=== PATIENT | male | born 1965 | race Asian ===

== ENCOUNTER 2016-08-03 18:27 | Emergency (ER) | payer OTHER ==
[~2016-08-03] VITALS: Ht 180.3 cm; Wt 83.4 kg
[2016-08-03] MEDS ORDERED: ACETAMINOPHEN 500 MG TABLET ONE (18:58)
[2016-08-03] MEDS ORDERED: ACETAMINOPHEN 500 MG TABLET PO ONE (19:00)
[2016-08-03] MEDS ORDERED: SODIUM CHLORIDE 0.9% 1,000ML IVBOLUS ONE (19:00)
[2016-08-03] MEDS ORDERED: SODIUM CHLORIDE FLUSH 10ML SYR IVF ONE (19:00)
[2016-08-03 19:29] LABS: ASPARTATE AMINO TRANSFERASE 30 U/L (15-37); BLOOD UREA NITROGEN 11 mg/dL (7-18)
[2016-08-03] MEDS ORDERED: ACETAMINOPHEN 325 MG TABLET ONE (19:29)
[2016-08-03 19:49] VITALS: BP 139/84
[2016-08-03 19:53] LABS: RAPID INFLUENZA A POSITIVE (Negative); RAPID INFLUENZA B Negative (Negative)
== END 2016-08-03 20:29 | disposition home or self-care (01) ==
LOC: ED 20:15
DX: B34.9 Viral infection, unspecified (principal); I25.2 Old myocardial infarction
CPT/HCPCS: 36415; 71010; 80053; 81001; 85025; 87400; 96360; 99285; J7030